=== PATIENT | female | born 1970 | race Caucasian/White ===

== ENCOUNTER 2023-09-05 19:44 | Inpatient (IN) | payer OTHER ==
[~2023-09-05] VITALS: Ht 152.4 cm; Wt 70.8 kg
[2023-09-05 01:15] VITALS: BP 136/76; PULSE 64; RESP 17; TEMP 97.3; O2SAT 98
[2023-09-05 19:45] VITALS: BP 190/86; PULSE 74; RESP 18; TEMP 98; O2SAT 96
[2023-09-05 20:33] LABS: BASOPHILS # (AUTO) 0.1 K/uL (0.00-0.22); BASOPHILS % (AUTO) 0.8 % (0.0-2.0); EOSINOPHILS # (AUTO) 0.2 K/uL (0-0.4); EOSINOPHILS % (AUTO) 2.2 % (0.0-4.0); HEMATOCRIT 43.1 % (36-48); HEMOGLOBIN 14.6 g/dL (12.0-16.0); LYMPHOCYTES % (AUTO) 39.4 % (20.5-51.1); MEAN CORPUSCULAR HEMOGLOBIN 29 pg (27-31); MEAN CORPUSCULAR HGB CONC 34 g/dL (33-37); MONOCYTES # (AUTO) 0.6 K/uL (0.8-1.0); MONOCYTES % (AUTO) 6.3 % (1.7-9.3); NEUTROPHILS # (AUTO) 5.2 K/uL (1.8-7.7); NEUTROPHILS % (AUTO) 51.3 % (42.2-75.2); PLATELET COUNT (AUTO) 228 K/uL (140-450); RED BLOOD CELL COUNT(AUTO) 5.01 MIL/uL (4.20-5.40); RED CELL DISTRIBUTION WIDTH 12.5 % (11.6-13.7); WHITE BLOOD COUNT (AUTO) 10.2 K/uL (4.8-10.8)
[2023-09-05 21:03] LABS: ALBUMIN 3.2 g/dL (3.4-5.0); CALCIUM 8.9 mg/dL (8.5-10.1); CARBON DIOXIDE 28.7 mmol/L (21-32); CREATININE 1.4 mg/dL (0.6-1.3); POTASSIUM 3.7 mmol/L (3.5-5.1); TOTAL PROTEIN, SERUM 6.3 g/dL (6.4-8.2)
[2023-09-05] MEDS: NACL 0.9% 2,000 ML IV ONE (21:13)
[2023-09-05] MEDS ORDERED: LORazepam 1 MG TAB PO PRN (23:10)
[2023-09-05] MEDS ORDERED: ONDANSETRON 4 MG/2 ML VIAL IVP PRN (23:10)
[2023-09-05] MEDS ORDERED: NITROGLYCERIN 0.4 MG TAB SL PRN (23:10)
[2023-09-05] MEDS ORDERED: ZOLPIDEM 5 MG TAB PO PRN (23:10)
[2023-09-05] MEDS ORDERED: DEXTROSE 50% 50 ML SYR IVP PRN (23:10)
[2023-09-05] MEDS ORDERED: MORPHINE SULFATE 2 MG/ML SYR IVP PRN (23:10)
[2023-09-05] MEDS ORDERED: hydrALAZINE 20 MG/ML VIAL IVP PRN (23:10)
[2023-09-05] MEDS ORDERED: METF-346 PO (23:20)
[2023-09-05] MEDS ORDERED: PAX20 PO (23:20)
[2023-09-05] MEDS ORDERED: HYDR-4004 PO (23:20)
[2023-09-05] MEDS ORDERED: AMLO10TA89 PO (23:20)
[2023-09-05] MEDS ORDERED: CLON0.1T16 PO (23:20)
[2023-09-05] MEDS ORDERED: LOSA100T52 PO (23:20)
[2023-09-05] MEDS ORDERED: ASPI-1822 PO (23:20)
[2023-09-05] MEDS: NACL 0.9% 1,000 ML IV SCH (23:31)
[2023-09-05] MEDS: ASPIRIN 81 MG TAB.CHEW PO SCH (23:31)
[2023-09-05] MEDS: ATORVASTATIN 20 MG TAB PO SCH (23:32)
[2023-09-05] MEDS: INSULIN LANTUS 100 UNITS/ML 10 ML VIAL SUBQ ONE (23:33)
[2023-09-06 01:15] VITALS: BP 136/76; PULSE 59; PULSE 64; RESP 17; TEMP 97.3; O2SAT 98
[2023-09-06 06:00] VITALS: BP 131/62; PULSE 80; RESP 18; TEMP 98.6; O2SAT 98
[2023-09-06 08:00] VITALS: BP 148/87; PULSE 59; PULSE 60; RESP 18; TEMP 97.1; O2SAT 99
[2023-09-06 08:02] LABS: BASOPHILS # (AUTO) 0.1 K/uL (0.00-0.22); BASOPHILS % (AUTO) 0.7 % (0.0-2.0); EOSINOPHILS # (AUTO) 0.2 K/uL (0-0.4); EOSINOPHILS % (AUTO) 2.4 % (0.0-4.0); HEMATOCRIT 40.7 % (36-48); HEMOGLOBIN 13.7 g/dL (12.0-16.0); LYMPHOCYTES # (AUTO) 4.6 K/uL (2.5-16.5); LYMPHOCYTES % (AUTO) 50.3 % (20.5-51.1); MEAN CORPUSCULAR HEMOGLOBIN 29 pg (27-31); MEAN CORPUSCULAR HGB CONC 34 g/dL (33-37); MEAN CORPUSCULAR VOLUME 86.2 fL (80-94); MONOCYTES # (AUTO) 0.6 K/uL (0.8-1.0); MONOCYTES % (AUTO) 6.8 % (1.7-9.3); NEUTROPHILS # (AUTO) 3.6 K/uL (1.8-7.7); NEUTROPHILS % (AUTO) 39.8 % (42.2-75.2); PLATELET COUNT (AUTO) 205 K/uL (140-450); RED BLOOD CELL COUNT(AUTO) 4.72 MIL/uL (4.20-5.40); RED CELL DISTRIBUTION WIDTH 12.6 % (11.6-13.7); WHITE BLOOD COUNT (AUTO) 9.1 K/uL (4.8-10.8)
[2023-09-06 08:25] LABS: ALBUMIN 2.7 g/dL (3.4-5.0); ANION GAP 8.9 (8-16); CALCIUM 7.7 mg/dL (8.5-10.1); CARBON DIOXIDE 29.8 mmol/L (21-32); CREATININE 0.9 mg/dL (0.6-1.3); POTASSIUM 3.7 mmol/L (3.5-5.1); TOTAL PROTEIN, SERUM 5.4 g/dL (6.4-8.2)
[2023-09-06] MEDS: BLOOD GLUCOSE MONITORING 1 DEV DEV FS SCH (08:26)
[2023-09-06] MEDS: INSULIN LISPRO SLIDING SCALE 100 UNITS/ML VIAL SUBQ PRN (08:27)
[2023-09-06] MEDS: LOSARTAN 25 MG TAB PO SCH (09:17)
[2023-09-06] MEDS: DOCUSATE SODIUM 100 MG GELCAP PO SCH (09:17)
[2023-09-06] MEDS: carvediloL 3.125 MG TAB PO SCH (09:21)
[2023-09-06] MEDS: PANTOPRAZOLE 40 MG INJ VIAL IVP SCH (10:16)
[2023-09-06 12:00] VITALS: BP 136/82; PULSE 58; PULSE 60; RESP 18; TEMP 97.1; O2SAT 98
[2023-09-06 16:00] VITALS: BP 106/65; PULSE 66; PULSE 94; RESP 18; TEMP 97.6; O2SAT 96
[2023-09-06 20:00] VITALS: BP 106/65; PULSE 73; PULSE 94; RESP 18; TEMP 97.6; O2SAT 96
[2023-09-06] MEDS: HYDROcodone/APAP 5/325 MG 1 TAB TAB PO PRN (20:23)
[2023-09-07] VITALS: BP 118/61; PULSE 59; PULSE 78; RESP 18; TEMP 96.7; O2SAT 99
[2023-09-07 04:00] VITALS: BP 152/83; PULSE 56; PULSE 57; RESP 18; TEMP 97; O2SAT 100
[2023-09-07 07:07] LABS: BASOPHILS # (AUTO) 0.1 K/uL (0.00-0.22); BASOPHILS % (AUTO) 0.7 % (0.0-2.0); EOSINOPHILS # (AUTO) 0.3 K/uL (0-0.4); EOSINOPHILS % (AUTO) 2.8 % (0.0-4.0); HEMATOCRIT 44.7 % (36-48); HEMOGLOBIN 14.8 g/dL (12.0-16.0); LYMPHOCYTES # (AUTO) 4.8 K/uL (2.5-16.5); LYMPHOCYTES % (AUTO) 52.1 % (20.5-51.1); MEAN CORPUSCULAR HEMOGLOBIN 29 pg (27-31); MEAN CORPUSCULAR HGB CONC 33 g/dL (33-37); MEAN CORPUSCULAR VOLUME 86.9 fL (80-94); MONOCYTES # (AUTO) 0.5 K/uL (0.8-1.0); MONOCYTES % (AUTO) 5.6 % (1.7-9.3); NEUTROPHILS # (AUTO) 3.6 K/uL (1.8-7.7); NEUTROPHILS % (AUTO) 38.8 % (42.2-75.2); PLATELET COUNT (AUTO) 221 K/uL (140-450); RED BLOOD CELL COUNT(AUTO) 5.15 MIL/uL (4.20-5.40); RED CELL DISTRIBUTION WIDTH 12.5 % (11.6-13.7); WHITE BLOOD COUNT (AUTO) 9.2 K/uL (4.8-10.8)
[2023-09-07 07:47] VITALS: PULSE 62; RESP 16; O2SAT 96
[2023-09-07 08:00] VITALS: BP 150/81; PULSE 62; PULSE 63; RESP 16; TEMP 95.8; O2SAT 95
[2023-09-07 08:18] LABS: ANION GAP 9.7 (8-16); CARBON DIOXIDE 29.2 mmol/L (21-32); CREATININE 0.9 mg/dL (0.6-1.3); POTASSIUM 3.9 mmol/L (3.5-5.1); TOTAL PROTEIN, SERUM 6.1 g/dL (6.4-8.2)
[2023-09-07 10:47] LABS: FREE T4 (FREE THYROXINE) 0.83 ng/dL (0.76-1.46); THYROID STIMULATING HORMONE 5.8 uIU/mL (0.34-3.74)
[2023-09-07] MEDS ORDERED: CARV3.12 PO (10:58)
[2023-09-07 11:46] VITALS: BP 161/90; PULSE 58; RESP 16; TEMP 97.6; O2SAT 98
== END 2023-09-07 12:15 | disposition home or self-care (01) | DRG 205 ==
LOC: MED 19:44 → MTU 23:14
PROVIDERS: ADMIT Student in an Organized Health Care Education/Training Program; ATTEND Student in an Organized Health Care Education/Training Program
DX: M94.0 Chondrocostal junction syndrome [Tietze] (principal); N17.0 Acute kidney failure with tubular necrosis; I10 Essential (primary) hypertension; E11.9 Type 2 diabetes mellitus without complications; Z79.899 Other long term (current) drug therapy; Z88.8 Allergy status to other drugs, medicaments and biological substances; I16.0 Hypertensive urgency
CPT/HCPCS: 36415; 71045; 80053; 82948; 83880; 84439; 84443; 84484; 85025; 87081; 93005; 96360; 96361; 96372; 99291; C9113; J1815